=== PATIENT | male | born 1940 | race Caucasian/White ===

== ENCOUNTER 2017-07-10 22:26 | Inpatient (IN) | payer OTHER ==
[~2017-07-10] VITALS: Ht 172.7 cm; Wt 86.2 kg
[~2017-07-10 22:26] MED LIST: ATIVAN0.5 MG OR; BAYER LOW81 MG OR; COUMADIN5 MG OR; CRESTOR10 MG OR; FLOMAX0.4 MG OR; METOPROLOL50 MG OR; NITRO-DUR0.4 MG/HR TD; NORVASC5 MG OR; RYTHMOL150 MG OR; TRAMADOL HCL50 MG OR; ZYLOPRIM100 MG OR
--- NOTE | 2017-07-10 22:35 | NUR ---
PT STRAIGHT BACK TO ROOM 9
--- NOTE | 2017-07-10 23:20 | NUR ---
ivf started as per md order.
[2017-07-10 23:22] LABS: HEMATOCRIT 42.5 % (39.0-50.0); HEMOGLOBIN 14.6 g/dl (14.0-18.0); IMMATURE GRANULOCYTES 0.8 % (0.0-1.0); MEAN CELL VOLUME 94.7 fL CALC (80.0-100.0); MEAN CORPUSCULAR HGB 32.5 pG CALC (26.0-32.0); MEAN CORPUSCULAR HGB CONC 34.4 g/L CALC (32.0-36.0); NEUT# 2.31 thou/uL (1.82-7.42); RED BLOOD COUNT 4.49 mill/uL (4.70-6.10); RED CELL DISTRI WIDTH 15.3 % (11.5-15.5)
[2017-07-10 23:32] LABS: INFLUENZA A NONE DETECTED (NONE DETECT); INFLUENZA B NONE DETECTED (NONE DETECT)
[2017-07-10 23:39] LABS: ALBUMIN 4.3 g/dL (3.2-5.0); BILIRUBIN, TOTAL 0.6 mg/dL (0.0-1.4); TOTAL PROTEIN 7.7 g/dL (6.3-8.2)
--- NOTE | 2017-07-10 23:51 | NUR ---
BREATHING TREATMENT GIVEN. BREATHING TECH. FOR GOOD DEPOSITION TO THE LUNGS.
[2017-07-10] MEDS ORDERED: PANTOPRAZOLE SO40 MG PO (23:52)
[2017-07-10] MEDS ORDERED: SYNTHROID50 MCG PO (23:53)
[2017-07-10] MEDS ORDERED: COVERSYL PO (23:54)
[2017-07-10] MEDS ORDERED: PRADAXA150 MG PO (23:55)
[2017-07-10] MEDS ORDERED: INDAPAMIDE2.5 MG PO (23:56)
--- NOTE | 2017-07-11 00:20 | NUR ---
in room to discuss clinical findings with pt. verbalized understanding.
--- NOTE | 2017-07-11 00:30 | NUR ---
PT. MADE AWARE OF ADMISSION.
--- NOTE | 2017-07-11 01:03 | NUR ---
iv abt. started as per md order.
--- NOTE | 2017-07-11 01:08 | NUR ---
Admission Note Report Given to: EMILY CARNEY Transported by: Wheelchair X Stretcher Transported with: X Nurse Transporter X Patent IV O2 X Software Configuration Engineer
--- NOTE | 2017-07-11 01:22 | NUR ---
TRANSFERED TO ID VIA STRETCHER.
[2017-07-11 01:30] VITALS: BP 146/86
--- NOTE | 2017-07-11 01:30 | NUR ---
PT ARRIVED TO UNIT VIA STRETCHER WITH ER STAFF. ALERT AND ORIENTED X 3; THERE ARE SOME LANGUAGE BARRIERS; PT IS CITIZEN OF THE [place] AMBULATED TO BED WITH ONE PERSON ASSIST. DENIES PAIN CURRENTLY. RESPIRATIONS EVEN AND UNLABORED ON OXYGEN; SOB WITH EXERTION. ORIENTED TO ROOM AND CALL LIGHT SYSTEM. PLAN OF CARE DISCUSSED. PT ENCOURAGED TO VERBALIZE CONCERNS. STATES UNDERSTANDING. SAFETY MEASURES IN PLACE. CALL LIGHT WITHIN REACH.
[2017-07-11 04:00] VITALS: BP 122/65
--- NOTE | 2017-07-11 04:38 | NUR ---
PT ASLEEP; AWAKENS TO VERBAL STIMULI. OXYGEN WAS REMOVED BY PT AND SATURATION WAS 86% ON ROOM AIR. REPLACED OXYGEN AND EDUCATED PT ON BREATHING TECHNIQUES; OXYGEN SATURATION 90% ON 2L. CONTINUES WITH PERSISTENT COUGH. ROBITUSSIN GIVEN WITH GOOD EFFECT. PT HAS NO REQUESTS AT THIS TIME. SAFETY MEASURES IN PLACE. CALL LIGHT WITHIN REACH.
[2017-07-11 04:53] LABS: URINE BILIRUBIN - DIPSTICK NEGATIVE (NEGATIVE); URINE BLOOD DIPSTICK SMALL (NEGATIVE); URINE COLOR YELLOW; URINE GLUCOSE - DIPSTICK NEGATIVE (NEGATIVE); URINE KETONE NEGATIVE (NEGATIVE); URINE LEUK ESTERASE NEGATIVE (NEGATIVE); URINE NITRITE - DIPSTICK NEGATIVE (Negative); URINE PROTEIN - DIPSTICK NEGATIVE (NEG-TRACE); URINE UROBILINOGEN - DIPSTICK 0.2 E.U./dL (0.2)
[2017-07-11 04:54] LABS: URINE CLARITY CLEAR
[2017-07-11 05:01] LABS: URINE MUCUS FEW hpf (NONE-FEW); URINE SQUAMOUS EPITHELIAL CELL FEW EPI/hpf (0-FEW)
--- NOTE | 2017-07-11 07:00 | NUR ---
RECEIVED BEDSIDE REPORT FROM EMILY FENTON. RESTING IN SUPINE POSITION WITH EYES CLOSED, AWAKENS EASILY. RESPS EVEN AND UNLABORED ON O2 VIA NC, TELE MONITOR IN PLACE. #20 LAC INFUSING WITHOUT DIFFICULTY, SITE APPEARS HEALTHY. DENIES PAIN OR DISCOMFORT. PLAN OF CARE DISCUSSED. SAFETY PRECAUTIONS REINFORCED. BED IN LOWEST POSITION WITH WHEELS LOCKED. CALL LIGHT WITHIN REACH. ENCOURAGED PT TO CALL FOR ANY NEEDS.
[2017-07-11 07:45] VITALS: BP 127/70
[2017-07-11 09:33] LABS: CHOLESTEROL HDL RATIO 3.7 (<4.4 (CALC)); CREATININE 1.7 mg/dL (0.7-1.3); MAGNESIUM 1.2 mg/dL (1.6-2.3); POTASSIUM 3.8 mmol/l (3.5-5.1)
[2017-07-11 09:36] LABS: HEMATOCRIT 41.9 % (39.0-50.0); HEMOGLOBIN 14.3 g/dl (14.0-18.0); MEAN CELL VOLUME 95.7 fL CALC (80.0-100.0); MEAN CORPUSCULAR HGB 32.6 pG CALC (26.0-32.0); MEAN CORPUSCULAR HGB CONC 34.1 g/L CALC (32.0-36.0); NEUT# 2.69 thou/uL (1.82-7.42); RED BLOOD COUNT 4.38 mill/uL (4.70-6.10); RED CELL DISTRI WIDTH 15.4 % (11.5-15.5)
[2017-07-11 11:05] VITALS: BP 129/72
--- NOTE | 2017-07-11 12:00 | NUR ---
SITTING IN BEDSIDE CHAIR EATING LUNCH. RESPS EVEN AND UNLABORED ON O2 VIA NC, TELE MONITOR IN PLACE. DENIES PAIN OR DISCOMFORT. CALL LIGHT WITHIN REACH. WILL CONTINUE TO MONITOR.
[2017-07-11 15:23] VITALS: BP 115/66
--- NOTE | 2017-07-11 15:30 | NUR ---
DR DOMINGUEZ IN WITH PT, NEW ORDERS RECEIVED.
--- NOTE | 2017-07-11 16:00 | NUR ---
SITTING IN BEDSIDE CHAIR WITH EYES CLOSED, AWAKENS EASILY. RESPS EVEN AND UNLABORED ON O2 VIA NC, TELE MONITOR IN PLACE. #20 LAC INFUSING WITHOUT DIFFICULTY, SITE APPEARS HEALTHY. DENIES PAIN OR DISCOMFORT. CALL LIGHT WITHIN REACH. ENCOURAGED PT TO CALL FOR ANY NEEDS.
--- NOTE | 2017-07-11 16:51 | NUR ---
Patient is doing better. Still coughing a little bit. c
[2017-07-11 19:12] VITALS: BP 123/62
--- NOTE | 2017-07-11 19:15 | NUR ---
PT OOB IN BEDSIDE CHAIR. PT WOKE FOR ASSESSMENT. ASSISTED BACK TO BED. RESP EVEN AND UNLABORED WITH O2 IN PLACE. NO DISTRESS NOTED. TELE IN PLACE. ABD SOFT; ACTIVE BOWEL SOUNDS. LEFT ANKLE TRACE EDEMA NOTED; PT STATES THIS IS NOT NEW. PEDAL PULSES PALPATED BILAT. IV LAC PATENT; NO REDNESS OR EDEMA NOTED. PT DENIES ANY PAIN OR DISCOMFORT. FREQUENT ROUNDS MADE. SAFETY PRECUATIONS REINFORCED. CALL LIGHT WITHIN REACH.
--- NOTE | 2017-07-12 00:05 | NUR ---
RESP EVEN AND UNLABORED. NO DISTRESS NOTED. TELE IN PLACE. IV PATENT. CALL LIGHT WITHIN REACH.
[2017-07-12 00:30] VITALS: BP 108/59
--- NOTE | 2017-07-12 04:10 | NUR ---
ASSESSMENT UNCHANGED. RESP EVEN AND UNLABORED. TELE IN PLACE. IV PATENT. CALL LIGHT WITHIN REACH.
[2017-07-12 04:40] VITALS: BP 103/67
--- NOTE | 2017-07-12 04:55 | NUR ---
PT OFF FLOOR TO XRAY.
--- NOTE | 2017-07-12 05:05 | NUR ---
PT BACK ON FLOOR FROM XRAY.
[2017-07-12 06:41] LABS: HEMATOCRIT 39.5 % (39.0-50.0); HEMOGLOBIN 13.7 g/dl (14.0-18.0); IMMATURE GRANULOCYTES 0.9 % (0.0-1.0); MEAN CELL VOLUME 95.6 fL CALC (80.0-100.0); MEAN CORPUSCULAR HGB 33.2 pG CALC (26.0-32.0); MEAN CORPUSCULAR HGB CONC 34.7 g/L CALC (32.0-36.0); RED BLOOD COUNT 4.13 mill/uL (4.70-6.10); RED CELL DISTRI WIDTH 15.6 % (11.5-15.5)
[2017-07-12 06:45] LABS: CREATININE 1.5 mg/dL (0.7-1.3); POTASSIUM 3.7 mmol/l (3.5-5.1)
[2017-07-12 07:00] LABS: MANUAL DIFFERENTIAL YES; PLATELET COUNT 120 thou/uL (130-400)
--- NOTE | 2017-07-12 07:00 | NUR ---
RECEIVED BEDSIDE REPORT FROM CASPER FENTON. SITTING IN BEDSIDE CHAIR. RESPS EVEN AND UNLABORED ON O2 VIA NC, TELE MONITOR IN PLACE. DENIES PAIN OR DISCOMFORT. PLAN OF CARE DISCUSSED. SAFETY PRECAUTIONS REINFORCED. BED IN LOWEST POSITION WITH WHEELS LOCKED. CALL LIGHT WITHIN REACH. ENCOURAGED PT TO CALL FOR ANY NEEDS.
[2017-07-12 07:01] LABS: BAND 5 % (0-8)
--- NOTE | 2017-07-12 07:33 | NUR ---
ASSISTED PT TO THE RECLINER, CALL LIGHT IN REACH.
[2017-07-12 07:49] VITALS: BP 111/51
--- NOTE | 2017-07-12 09:35 | NUR ---
MEDICATED WITH ROBITUSSIN PO FOR C/O NAGGING COUGH.
[2017-07-12 11:06] VITALS: BP 111/55
--- NOTE | 2017-07-12 12:00 | NUR ---
SITTING IN BEDSIDE CHAIR EATING LUNCH. RESPS EVEN AND UNLABORED ON O2 VIA NC, TELE MONITOR IN PLACE. #20 LAC INFUSING WITHOUT DIFFICULTY, SITE APPEARS HEALTHY. DR DOMINGUEZ IN WITH PT, NEW ORDERS RECEIVED. VOICES NO NEEDS AT THIS TIME. CALL LIGHT WITHIN REACH. WILL CONTINUE TO MONITOR.
[2017-07-12 12:23] VITALS: BP 113/59
[2017-07-12] MEDS ORDERED: COMBIVENT RESPIMAT IN (13:02)
[2017-07-12] MEDS ORDERED: ROBITUSSIN AC10 ML PO (13:02)
[2017-07-12] MEDS ORDERED: PREDNISONE10 MG PO (13:02)
[2017-07-12] MEDS ORDERED: VIBRAMYCIN100 M2 PO (13:02)
--- NOTE | 2017-07-12 13:50 | NUR ---
Discharge instructions given. Patient verbalizes understanding of same. Discharged in stable condition via Ambulatory to Home with spouse. All belongings sent with pt.
== END 2017-07-12 13:51 | disposition home or self-care (01) | DRG 191 ==
LOC: ED 22:26 → ED-I 07-11 → ED 07-11 00:25 → MS2 07-11 00:26
PROVIDERS: Emergency Medicine; Nurse Practitioner Family; ADMIT Internal Medicine; ATTEND Internal Medicine
DX: J44.1 Chronic obstructive pulmonary disease with (acute) exacerbation (principal); N17.9 Acute kidney failure, unspecified; I48.91 Unspecified atrial fibrillation; E86.0 Dehydration; I10 Essential (primary) hypertension; E78.5 Hyperlipidemia, unspecified; E03.9 Hypothyroidism, unspecified; R09.02 Hypoxemia; K21.9 Gastro-esophageal reflux disease without esophagitis; I71.4 Abdominal aortic aneurysm, without rupture; M10.9 Gout, unspecified; I73.9 Peripheral vascular disease, unspecified; Z79.02 Long term (current) use of antithrombotics/antiplatelets; Z95.5 Presence of coronary angioplasty implant and graft; Z95.1 Presence of aortocoronary bypass graft; Z87.891 Personal history of nicotine dependence